=== PATIENT | male | born 1955 | race Caucasian/White ===

== ENCOUNTER 2023-01-27 00:30 | Day surgery (SDC) | payer MEDICARE, SELFPAY ==
[2023-01-11 14:36] VITALS: BMI 29.4
[2023-01-27 09:23] VITALS: BP 130/80; PULSE 80; RESP 20; TEMP 36.1; O2SAT 99
[2023-01-27] MEDS: LACTATED RINGERS 1,000 ML 150 ML IV CONT (09:35)
--- NOTE | 2023-01-27 09:51 | PM.HPGS ---
History of Present Illness History of Present Illness Consent: Risks, benefits, and alternatives have been discussed and questions answered. Patient agrees to proceed with procedure. Chief complaint: neoplasm screening Narrative: Danny Kelley is a 68 year old male with colon polyps 6 years ago Review of Systems Constitutional: Constitutional: Denies headache(s) and Denies weakness Eyes: Eyes: Denies blurry vision ENT: Reports Normal hearing present, Denies headache(s) and Denies neck pain Cardiovascular: Cardiovascular: Denies chest pain and Denies dyspnea Respiratory: Respiratory: Denies dyspnea Gastrointestinal: Gastrointestinal: Reports no additional gastrointestinal complaints Genitourinary: Genitourinary: Denies dysuria Musculoskeletal: Musculoskeletal: Denies neck pain Integumentary/Breasts: Skin/Breast: Denies dry skin Neurologic: Reports Normal hearing present, Denies headache(s) and Denies weakness Psychiatric: Psychiatric: Denies anxiety Endocrine: Endocrine: Denies change in body appearance Hematologic/Lymphatic: Hematologic/Lymphatic: Denies easy bleeding Allergic/Immunologic: Allergic/Immunologic: Denies urticaria PMF Past Medical History Medical History (Updated 01/27/23 @ 09:52 by Marquise Villanueva MD) Adenomatous colon polyp Family History Family History Sibling Family history of coronary artery disease Social History Social History Smoking status: Never smoker Second hand tobacco smoke exposure: No Alcohol intake: current Drinks per week: 2 Alcohol use details: 10 drinks monthly during summer Substance use: never Substance use type: does not use Living arrangements: with family Occupation/Education: retired Gender identity (if verbalized by the patient): Male Sexual Orientation (if Verbalized by the Patient): Straight or Heterosexual Spiritual care concerns: No Meds Home Medications and Allergies Home Medications Medication Instructions Recorded Confirmed Type lamotrigine 200 mg tablet 400 mg PO BID #120 tabs 12/12/20 01/27/23 Rx (Lamictal) phenobarbital 64.8 mg tablet 64.8 mg PO DAILY #30 tabs 12/12/20 01/11/23 Rx zonisamide 100 mg capsule 700 mg PO DAILY #210 caps 12/12/20 01/11/23 Rx (Zonegran) omeprazole 20 mg capsule,delayed 20 mg PO DAILY #90 caps 04/27/22 01/11/23 Rx release atorvastatin 80 mg tablet 80 mg PO DAILY 01/11/23 01/11/23 History cholecalciferol (vitamin D3) 25 25 mcg PO DAILY 01/11/23 01/11/23 History mcg (1,000 unit) tablet (Vitamin D3) Allergies Allergy/AdvReac Type Severity Reaction Status Date / Time meperidine Allergy Stopped Verified 01/27/23 09:22 Breathing Vital Signs Vital Signs - 24 hr 01/27/23 09:23 Temperature 97 F L Pulse Rate 80 Respiratory Rate 20 Blood Pressure 130/80 Pulse Oximetry 99 Oxygen Delivery Room Air Exam Const: General: comfortable and no acute distress HENMT: Face/Nose/Sinus: Normal nares present Eyes: General: appearance normal, both eyes and all related structures Neck: Neck: no JVD Resp: Auscultation: clear to auscultation bilaterally Cardio: Rate: regular rate Rhythm: regular rhythm GI: Inspection: non-distended GI Palp: Yes Soft to palpation Skin: General skin exam: normal color Neuro: General: gait normal Speech: normal speech Extrem: General: normal to inspection Psych: Mental Status: mental status grossly normal Assessment and Plan Assessment and plan (1) Adenomatous colon polyp: Code(s): D12.6 - Benign neoplasm of colon, unspecified Status: Acute Assessment and Plan: colonoscopy
--- NOTE | 2023-01-27 09:58 | P.PNAN_ITS ---
Anes - Initial Pre Proc Eval Procedure: Operation Date: 01/27/23 10:30 Proposed Procedures p Screening Colonoscopy - Marquise Villanueva MD Date/Time: 01/27/23 09:58 Surgeon: Marquise Villanueva MD Pre Op Diagnosis: neoplasm screening Patient Data Age: 68 Gender: M Height: 1.78 m Weight: 90.1 kg Last Vital Signs Temp 97 F L 01/27/23 09:23 Pulse 80 01/27/23 09:23 Resp 20 01/27/23 09:23 BP 130/80 01/27/23 09:23 Pulse Ox 99 01/27/23 09:23 O2 Del Method Room Air 01/27/23 09:23 Allergies Allergy/AdvReac Type Severity Reaction Status Date / Time meperidine Allergy Stopped Verified 01/27/23 09:22 Breathing Home Medications Medication Instructions Recorded Confirmed Type lamotrigine 200 mg tablet 400 mg PO BID #120 tabs 12/12/20 01/27/23 Rx (Lamictal) phenobarbital 64.8 mg tablet 64.8 mg PO DAILY #30 tabs 12/12/20 01/11/23 Rx zonisamide 100 mg capsule 700 mg PO DAILY #210 caps 12/12/20 01/11/23 Rx (Zonegran) omeprazole 20 mg capsule,delayed 20 mg PO DAILY #90 caps 04/27/22 01/11/23 Rx release atorvastatin 80 mg tablet 80 mg PO DAILY 01/11/23 01/11/23 History cholecalciferol (vitamin D3) 25 25 mcg PO DAILY 01/11/23 01/11/23 History mcg (1,000 unit) tablet (Vitamin D3) Patient hx anesthesia problems: none Family hx anesthesia problems: none Results Review: All pre-operative results and documents have been reviewed as part of the pre- operative evaluation. [facility] Past Medical History Medical History (Updated 01/27/23 @ 09:52 by Marquise Villanueva MD) Adenomatous colon polyp Family History Family History Sibling Family history of coronary artery disease Social History Social History Smoking status: Never smoker Second hand tobacco smoke exposure: No Alcohol intake: current Drinks per week: 2 Alcohol use details: 10 drinks monthly during summer Substance use: never Substance use type: does not use Living arrangements: with family Occupation/Education: retired Gender identity (if verbalized by the patient): Male Sexual Orientation (if Verbalized by the Patient): Straight or Heterosexual Spiritual care concerns: No Anes - Eval Final PreProcedure Day of Procedure 01/27/23 09:58 Patient weight: overweight Heart: regular rate and rhythm Lungs: clear to auscultation Airway: Mallampati scale class II Neurological: alert and oriented Last oral intake: >/= 8 hours ASA classification: III Emergent: no Anesthetic plan: proceed Anesthesia type and monitoring: general GIVS and standard monitoring Results Review: All pre-operative results and documents have been reviewed as part of the pre- operative evaluation. Informed Consent: The patient's anesthetic plan and its attendant risks and benefits were discussed with the patient/family/POA. Questions were solicited and answers provided to the satisfaction of the patient/family/POA.
[2023-01-27 10:13] VITALS: BP 105/64; PULSE 69; RESP 18; O2SAT 96
[2023-01-27 10:23] VITALS: BP 105/75; PULSE 66; RESP 16; O2SAT 97
[2023-01-27 10:33] VITALS: BP 127/83; PULSE 70; RESP 20; O2SAT 99
== END 2023-01-27 10:47 | disposition home or self-care (01) ==
PROVIDERS: PCP Family Medicine; Visit Provider Internal Medicine Gastroenterology
PROC: 0DJD8ZZ Inspection of Lower Intestinal Tract, Via Natural or Artificial Opening Endoscopic (ICD-10-PCS; CPT 45378; principal; 2023-01-27 10:30)
DX: Z12.11 Encounter for screening for malignant neoplasm of colon (principal); K63.5 Polyp of colon; K64.8 Other hemorrhoids
CPT/HCPCS: 45385; 88305; J2704; J7120

== ENCOUNTER 2023-11-30 21:10 | Emergency (ER) | payer MEDICARE, SELFPAY ==
--- NOTE | ~2023-11-30 | XR_ITS ---
EXAMINATION: XR chest 2V Exam Date/Time: 11/30/2023 21:38 MOTOR EQUIPMENT SERGEANT HISTORY: L shoulder and arm pain radiating into neck Comparison: None. RESULT: Lines, tubes, and devices: None. Lungs and pleura: Clear. Cardiomediastinal silhouette: Unremarkable. Other: No acute osseous or upper abdominal finding. IMPRESSION: No acute cardiopulmonary process. Reviewed, dictated and finalized at location K. R EQUIPMENT SERGEANT
--- NOTE | 2023-11-30 21:11 | ECG_ITS ---
Measurements Intervals [place] Rate: 81 P: 52 WY: 170 QRS: 22 QRSD: 88 T: 78 QT: 338 QTc: 394 Interpretive Statements SINUS RHYTHM POSSIBLE LEFT ATRIAL ENLARGEMENT BORDERLINE ST-T WAVE ABNORMALITY- LAT/HIGH LAT LEADS BASELINE ARTIFACT- III, AVF, V1-V6 BORDERLINE ECG NO PREVIOUS ECG AVAILABLE FOR COMPARISON Electronically Signed On 12-01-2023 7:45:43 WINDOWS SOFTWARE ENGINEER by Madhu Magallon D.O.
[2023-11-30 21:28] LABS: Basophils Absolute Auto 0.1 K/mm3 (0.0-0.1); Basophils Percent Auto 0.9 % (0.2-1.2); Eosinophils Absolute Auto 0.2 K/mm3 (0-0.3); Eosinophils Percent Auto 2.8 % (0-4.4); Hematocrit 47.8 % (42.0-52.0); Hemoglobin 15.3 g/dL (14.0-18.0); Immature Granulocyte Absolute 0.02 K/mm3 (0.00-0.031); Immature Granulocyte Percent A 0.3 % (0-0.5); Lymphocytes Absolute Auto 1.96 K/mm3 (0.9-3.2); Lymphocytes Percent Auto 30.1 % (18.3-44.2); Mean Corpuscular Hemoglobin 32.5 pg (26-34); Mean Corpuscular Volume 101.5 fl (80-100); Mean Platelet Volume 8.3 fl (7.4-10.4); Monocytes Absolute Auto 0.6 K/mm3 (0.1-0.6); Monocytes Percent Auto 8.6 % (2.6-8.5); Neutrophils Absolute Auto 3.7 K/mm3 (1.3-6.7); Neutrophils Percent Auto 57.3 % (45.5-73.1); Platelet Count Result 287 k/mm3 (150-375); Red Blood Count 4.71 M/mm3 (4.6-6.20); Red Cell Distribution Width 13.3 % (11.5-14.5); White Blood Count 6.5 K/mm3 (4.5-10.0)
[2023-11-30 21:35] VITALS: BP 153/111; PULSE 84; RESP 16; TEMP 36.2; O2SAT 98
[2023-11-30 21:37] LABS: Alanine Aminotransferase 20 U/L (6-50); Albumin Level 4.3 g/dL (3.5-5.1); Alkaline Phosphatase 84 U/L (38-126); Anion Gap 12 mmol/L (8-16); Aspartate Amino Transferase 24 U/L (17-59); Bilirubin,Total 0.4 mg/dL (0.2-1.3); Blood Urea Nitrogen 26 mg/dL (9-20); Calcium 9.7 mg/dL (8.4-10.2); Carbon Dioxide 20 mmol/L (22-30); Chloride 110 mmol/L (98-107); Estimated Glomerular Filt Rate 43; Glucose 90 mg/dL (65-110); Lipase 429 U/L (23-300); Potassium 3.9 mmol/L (3.4-5.0); Sodium 142 mmol/L (137-145)
[2023-11-30 21:45] LABS: INR 0.9; Prothrombin Time 12.9 Seconds (11.1-14.7)
[2023-11-30 21:49] LABS: Troponin I < 0.012 ng/mL (0.000-0.034)
--- NOTE | 2023-12-01 01:12 | ECG_ITS ---
Measurements Intervals [place] Rate: 69 P: 41 WI: 182 QRS: 27 QRSD: 90 T: 79 QT: 365 QTc: 393 Interpretive Statements SINUS RHYTHM POSSIBLE LEFT ATRIAL ENLARGEMENT BORDERLINE ST-T WAVE ABNORMALITY- HIGH LATERAL LEADS BORDERLINE ECG COMPARED TO ECG 11/30/2023 21:16:56 NO SIGNIFICANT CHANGES Electronically Signed On 12-01-2023 7:55:17 VTC TECHNICIAN by Madhu Magallon D.O.
[2023-12-01 01:13] VITALS: BP 157/93; PULSE 75; RESP 18; TEMP 36.8; O2SAT 100
[2023-12-01 01:49] LABS: Troponin I < 0.012 ng/mL (0.000-0.034)
[2023-12-01 02:53] VITALS: BP 164/89; PULSE 71; PULSE 77; RESP 22; O2SAT 100
--- NOTE | 2023-12-01 04:55 | ED.GENADULT ---
HPI - General Adult General Chief complaint: Unspecified Stated complaint: left arm pain Time Seen by Provider: 12/01/23 03:19 Source: patient Limitations: no limitations History of Present Illness HPI narrative: Patient is a 68-year-old male presents to the emergency department complaining of left shoulder blade pain. Patient states the pain has been going on since Wednesday when he gradually noticed it and has not gone away and states that it seems to radiate from his left side of his neck down his left shoulder blade in addition to his left arm as far as his elbow but does not go any further issues beyond the lateral aspect of his elbow, is a shooting pain. Patient denies any preceding injuries. Patient denies any history of this in the past. Patient states the pain is slightly worse when he is rotating his head to the side. Patient has tried Tylenol and Motrin. Patient denies fever, recent illness, chest pain, shortness of breath, sore throat, nasal congestion, abdominal pain, nausea, vomiting, diarrhea, melena, hematochezia, dysuria, urinary incontinence, stool incontinence, history of cancer, weight loss, history of IV drug abuse. Patient denies numbness or weakness. Related Data Home Medications Medication Instructions Recorded Confirmed cholecalciferol (vitamin D3) 25 25 mcg PO DAILY 01/11/23 01/28/23 mcg (1,000 unit) tablet (Vitamin D3) Allergies Allergy/AdvReac Type Severity Reaction Status Date / Time meperidine Allergy Stopped Verified 12/01/23 02:55 Breathing Review of Systems Review of Systems: A 10 system review of systems was completed on the patient and is negative except for what is stated in the HPI. Nursing and ancillary documentation was reviewed. [facility] Past Medical History Medical History Adenomatous colon polyp Family History Family History Sibling Family history of coronary artery disease Social History Social History Smoking status: Never smoker Second hand tobacco smoke exposure: No Alcohol intake: current Drinks per week: 2 Alcohol use details: 10 drinks monthly during summer Substance use: never Substance use type: does not use Living arrangements: with family Occupation/Education: retired Gender identity (if verbalized by the patient): Male Sexual Orientation (if Verbalized by the Patient): Straight or Heterosexual Spiritual care concerns: No Comments At time of signature, I have reviewed and agree with nursing past medical, surgical, social and family history unless otherwise noted. Please see the nursing chart for further information. There is no relevant family history pertinent to the presenting complaint. Exam Narrative: CONST: No acute distress. Well nourished. HENMT: Head is normocephalic and atraumatic. Moist mucous membranes. No posterior oropharynx erythema. EYES: No conjunctival icterus, injection, or pallor. PERRL. NECK: No meningeal signs. No carotid bruits. RESP: Able to speak in full sentences. Normal respiratory effort. CTAB. CARDIO: Regular rate. Regular rhythm. 2+ DP and radial pulses bilaterally. GI: Nondistended. No tenderness to palpation. Soft. : No CVA tenderness to palpation. SKIN: No rashes or lesions noted on exposed skin. NEURO: Oriented x3. Moves all extremities. Positive Spurling's test on the left reproducing patient's symptoms. EXTREM/MSK/BACK: No pedal edema. No midline vertebral tenderness to palpation or step-offs. Motor strength is 5/5 in bilateral upper extremities and lower extremities. Sensation intact to light touch throughout all 4 extremities. Mild muscle spasms of the left paracervical muscles. PSYCH: Normal affect. Course Vital Signs Vital signs: Vital Signs Temperature 97.1 F L 11/30/23 21:35 Pulse Rate 84
[2023-12-01] MEDS: IBUPROFEN 400 MG TABLET PO (05:06)
[2023-12-01] MEDS: diazePAM (*CRX) 5 MG TABLET PO (05:07)
[2023-12-01 05:08] VITALS: BP 165/90; PULSE 86; RESP 17; O2SAT 99
== END 2023-12-01 05:50 | disposition home or self-care (01) ==
PROVIDERS: Student in an Organized Health Care Education/Training Program; Emergency Provider Student in an Organized Health Care Education/Training Program; PCP Family Medicine
DX: M54.12 Radiculopathy, cervical region (principal); E78.5 Hyperlipidemia, unspecified
CPT/HCPCS: 36415; 71046; 80053; 83690; 84484; 85025; 85610; 85730; 93005; 99284; A9270

== ENCOUNTER → 2023-12-02 11:29 | Outpatient (CLI) | payer MEDICARE, SELFPAY ==
--- NOTE | ~2023-12-02 | XR_ITS ---
Left Shoulder Technique: AP and scapular Y views were obtained. Clinical History: Pain Findings: No fracture or dislocation is seen. Osseous alignment is anatomic. The glenohumeral and acr omioclavicular joint spaces are preserved. Soft tissues are unremarkable. Impression: Unremarkable left shoulder radiographs. Reviewed, dictated and finalized at [facility]. IST INFORMATION ASSISTANT Impression: Unremarkable left shoulder radiographs.
== END ==
PROVIDERS: PCP Physician Assistant; Visit Provider Physician Assistant
DX: M25.512 Pain in left shoulder (principal)
CPT/HCPCS: 73030